=== PATIENT | male | born 1960 ===

== ENCOUNTER 2016-09-24 20:35 | Observation (INO) | payer OTHER ==
[2016-09-24 21:42] LABS: BASO # 0.02 K/mm3 (0.0-2.0); BASO % 0.2 % (0.0-3.0); EOS # 0.1 (0.0-0.7); EOS % 1.4 % (1.5-5.0); GRAN # 6.64 (1.4-6.5); GRAN % 69.1 % (50.0-68.0); HEMOGLOBIN 13.6 g/dL (14.0-18.0); LYMPH % 20.9 % (22.0-35.0); MEAN CELL VOLUME 84.5 fl (80.0-105.0); MEAN CORPUSCULAR HEMOGLOBIN 30.1 pg (25.0-35.0); MEAN CORPUSCULAR HGB CONC 35.6 g/dl (31.0-37.0); MEAN PLATELET VOLUME 10.7 fl (7.0-11.0); MONO # 0.8 (0.1-0.6); MONO % 8.4 % (1.0-6.0); PLATELET COUNT 223 10^3/uL (120.0-450.0); RBC 4.52 10^6/uL (3.5-6.1); RED CELL DISTRIBUTION WIDTH 12.9 % (11.5-14.5); WHITE BLOOD COUNT 9.6 10^3/ul (4.5-11.0)
[2016-09-24 21:52] LABS: ALB/GLOB RATIO 1.2 (1.1-1.8); ALBUMIN 4.1 g/dL (3.0-4.8); ALT/SGPT 33 U/L (7-56); AST/SGOT 22 U/L (15-59); BLOOD UREA NITROGEN 19 mg/dL (7-21); CALCIUM 9.4 mg/dL (8.4-10.5); GFR AFRICAN-AMERICAN > 60; GFR NON-AFRICAN AMERICAN > 60; LIPASE 256 U/L (23-300)
[2016-09-24 21:54] LABS: VENOUS BLOOD GAS BASE EXCESS 1.9 mmol/L (0.0-2.0); VENOUS BLOOD GAS PO2 31 mm/Hg (30-55); VENOUS BLOOD PH 7.33 (7.32-7.43)
[2016-09-24] MEDS ORDERED: Sodium Chloride 0.9% 1,000 ML IV STA ×2 (22:01→22:47)
[2016-09-24 22:08] LABS: TROPONIN I < 0.01 ng/mL
[2016-09-24 23:40] LABS: URINE BILIRUBIN NEGATIVE (NEGATIVE); URINE BLOOD NEGATIVE (NEGATIVE); URINE GLUCOSE (UA) >=1000 mg/dL (NEGATIVE); URINE LEUKOCYTE ESTERASE NEGATIVE Leu/uL (NEGATIVE); URINE NITRATE NEGATIVE (NEGATIVE); URINE PROTEIN NEGATIVE mg/dL (<30 mg/dL); URINE UROBILINOGEN 0.2 E.U./dL (<1 E.U./dL)
[2016-09-24 23:43] LABS: URINE APPEARANCE CLEAR (CLEAR); URINE COLOR STRAW (YELLOW)
[2016-09-25] MEDS ORDERED: Morphine 2 mg/ml ISec IVP STA (00:03)
--- NOTE | 2016-09-25 00:06 | ED PDOC ---
Arrival/HPI - General Historian: Patient - History of Present Illness Symptom Onset: Sudden Symptom Course: Unchanged Quality: Stabbing, Other (Sharp) Activities at Onset: Rest, Light Context: Home - General Chief Complaint: Medical Clearance Time Seen by Provider: 09/24/16 20:37 - History of Present Illness Narrative History of Present Illness (Text): 09/24/16 21:20 55 year old male non-smoker, whose past medical history includes diabetes mellitus, who presents to the Emergency department complaining of sudden sharp/ stabbing left-sided chest pain. Patient states pain is non-radiating and reports associated pain with deep inspiration. Patient denies any nausea, vomiting, diarrhea, constipation, fever, chills, urinary symptoms, dizziness, headache, weakness, or any other complaints. Patient states he did not take medication for pain. Patient reports he has history of diabetes and is non- compliant with his medication. Patient [id number] any recent travel, recent trauma , or any strenuous activity. (Angy Muniz) Past Medical History - Provider Review Nursing Documentation Reviewed: Yes - Infectious Disease Hx of Infectious Diseases: None - Endocrine/Metabolic Hx Diabetes Mellitus Type 2: Yes - Genitourinary/Gynecological Hx Genitourinary Disorders: No - Psychiatric Hx Substance Use: No Family/Social History - Physician Review Nursing Documentation Reviewed: Yes Family/Social History: Unknown Family HX Smoking Status: Current Some Days Smoker Hx Alcohol Use: No Hx Substance Use: No Allergies/Home Meds Allergies/Adverse Reactions: Allergies No Known Allergies Allergy (Verified 09/24/16 20:57) Review of Systems - Physician Review All systems were reviewed & negative as marked: Yes - Review of Systems Constitutional: Normal. absent: Fevers Eyes: Normal ENT: Normal Respiratory: absent: SOB, Cough Cardiovascular: Chest Pain Gastrointestinal: Normal. absent: Abdominal Pain, Diarrhea, Nausea, Vomiting Genitourinary Male: Normal. absent: Dysuria, Frequency, Hematuria, Urinary Output Changes Musculoskeletal: Normal. absent: Back Pain, Neck Pain Skin: Normal. absent: Rash Neurological: Normal. absent: Headache, Dizziness Endocrine: Normal Hemo/Lymphatic: Normal Psychiatric: Normal Physical Exam Vital Signs Reviewed: Yes Temperature: Afebrile Blood Pressure: Normal Pulse: Regular Respiratory Rate: Normal Appearance: Positive for: Well-Appearing, Non-Toxic, Comfortable Pain Distress: None Mental Status: Positive for: Alert and Oriented X 3 Finger Stick Blood Glucose: 355 - Systems Exam Head: Present: Atraumatic, Normocephalic Pupils: Present: PERRL Extroacular Muscles: Present: EOMI Conjunctiva: Present: Normal Mouth: Present: Moist Mucous Membranes Neck: Present: Normal Range of Motion (Supple). No: Meningeal Signs, MIDLINE TENDERNESS, Paraspinal Tenderness Respiratory/Chest: Present: Clear to Auscultation, Good Air Exchange, Tender to Palpation (Minimal left-sided anterior/lateral chest wall tenderness). No: Respiratory Distress, Accessory Muscle Use Cardiovascular: Present: Normal S1, S2, Tachycardic. No: Murmurs Abdomen: Present: Normal Bowel Sounds. No: Tenderness, Distention, Peritoneal Signs Back: Present: Normal Inspection. No: CVA Tenderness, Midline Tenderness, Paraspinal Tenderness, Pain with Leg Raise Upper Extremity: Present: Normal Inspection. No: Cyanosis, Edema Lower Extremity: Present: Normal Inspection. No: Edema Neurological: Present: GCS=15, Speech Normal Skin: Present: Warm, Dry, Normal Color. No: Rashes Psychiatric: Present: Alert, Oriented x 3, Normal Insight, Normal Concentration Medical Decision Making - Lab Interpretations I have reviewed the lab results: Yes - EKG Interpretation Interpreted by ED Physician: Yes Type: 12 lead EKG ED Course and Treatment: 09/24/16 21:20 Impression: 55 year old male non-smoker complaining of sudden sharp/stabbing left-sided chest pain. Non-compliant with diabetes medication. Plan: -- EKG -- Chest X-ray -- CBC, CMP -- VBG, cardiac enzymes, lipase, blood cultures -- D-dimer -- Urinalysis, urine cultures -- IV fluids -- Reassess and disposition Progress Notes: EKG shows sinus tachycardia at 102 bpm normal axis normal intervals no ST elevations Chest x-ray shows no infiltrate or effusion no cardiomegaly CBC within normal limits CMP shows a glucose of 451 D-dimer 0.45 Lactate 2.3 Troponin; within normal limits UA: wnl Patient was given 2 L of normal saline IV bolus: Glucose 403 8 units of insulin subcutaneous given Patient given morphine for pain Aspirin given by mouth Patient was seen and evaluated by Dr. Funes. dr. funes discussed case with dr. king; accepts observational status admission for uncontrolled DM, with cp r/o acs, with elevated lactate without sirs criteria impression; hyperglycemia, chest pain admit observational status to tele; dr. king. (Angy Muniz) - Lab Interpretations Microbiology Results: Microbiology Results 09/24/16 22:30 Blood Blood Culture - Preliminary NO GROWTH AFTER 24 HOURS 09/24/16 22:00 Blood Blood Culture - Preliminary NO GROWTH AFTER 24 HOURS Lab Results: 09/24/16 21:30 09/24/16 21:30 Lab Results 09/25/16 01:16: POC Glucose (mg/dL) 315 H 09/25/16 00:11: POC Glucose (mg/dL) 403 H* 09/24/16 23:30: Urine Color Straw, Urine Appearance Clear, Urine pH 6.0, Ur Specific [place] 1.015, Urine Protein Negative, Urine Glucose (UA) >=1000, Urine Ketones Negative, Urine Blood Negative, Urine Nitrate Negative, Urine Bilirubin Negative, Urine Urobilinogen 0.2, Ur Leukocyte Esterase Negative 09/24/16 22:15: D-Dimer, Quantitative 0.45 09/24/16 21:30: WBC 9.6, RBC 4.52, Hgb 13.6 L, Hct 38.2 L, MCV 84.5, MCH 30.1, MCHC 35.6, RDW 12.9, Plt Count 223, MPV 10.7, Gran % 69.1 H, Lymph % (Auto) 20.9 L, [place] % (Auto) 8.4 H, Eos % (Auto) 1.4 L, Baso % (Auto) 0.2, Gran # 6.64 H, Lymph # 2.0, [place] # 0.8 H, Eos # 0.1, Baso # 0.02 09/24/16 21:30: Sodium 132, Chloride 95 L, Potassium 4.1, Carbon Dioxide 26, Anion Gap 15, BUN 19, Creatinine 0.9, Est GFR ( Amer) > 60, Est GFR (Non- Af Amer) > 60, Random Glucose 451 H*, Calcium 9.4, Total Bilirubin 0.7, AST 22, ALT 33, Alkaline Phosphatase 211 H, Lactate Dehydrogenase 446, Total Creatine Kinase 99, Troponin I < 0.01, Total Protein 7.4, Albumin 4.1, Globulin 3.3, Albumin/Globulin Ratio 1.2, Lipase 256 09/24/16 21:30: pO2 31, VBG pH 7.33, VBG pCO2 55.0, VBG HCO3 29.0 H, VBG Total CO2 30.7 H, VBG O2 Sat (Calc) 65.3 H, VBG Base Excess 1.9, VBG Potassium 4.4, Sodium 134.0, Chloride 95.0 L, Glucose 462 H*, Lactate 2.3 H, FiO2 21.0, Venous Blood Potassium 4.4 09/24/16 21:15: POC Glucose (mg/dL) 355 H - RAD Interpretation Radiology Orders: 09/24/16 21:23 CHEST PORTABLE [RAD] Stat - Medication Orders Current Medication Orders: Discontinued Medications Aspirin (Aspirin) 325 mg PO STAT STA Stop: 09/25/16 00:04 Last Admin: 09/25/16 03:14 Dose: 325 mg Aspirin (Aspirin Chewable) 81 mg PO DAILY [facility] Last Admin: 09/25/16 09:15 Dose: 81 mg Atorvastatin Calcium (Lipitor) 10 mg PO DIN EMILE Atorvastatin Calcium (Lipitor) 80 mg PO DIN EMILE Famotidine (Pepcid) 20 mg PO 1000,2200 [facility] Last Admin: 09/25/16 09:15 Dose: 20 mg Heparin Sodium (Porcine) (Heparin) 5,000 units SC Q12 [facility] PRN Reason: Protocol Last Admin: 09/25/16 09:15 Dose: 5,000 units Sodium Chloride (Sodium Chloride 0.9%) 1,000 mls @ 999 mls/hr IV .Q1H1M STA Stop: 09/24/16 23:01 Last Admin: 09/24/16 22:04 Dose: 999 mls/hr Sodium Chloride (Sodium Chloride 0.9%) 1,000 mls @ 999 mls/hr IV .Q1H1M STA Stop: 09/24/16 23:47 Last Admin: 09/24/16 23:00 Dose: 999 mls/hr Sodium Chloride (Sodium Chloride 0.9%) 1,000 mls @ 100 mls/hr IV .Q10H STA Stop: 09/25/16 12:17 Last Admin: 09/25/16 03:14 Dose: 100 mls/hr Sodium Chloride (Sodium Chloride 0.9%) 1,000 mls @ 100 mls/hr IV .Q10H [facility] Last Admin: 09/25/16 05:06 Dose: Insulin Human Lispro (Humalog Med) 0 units SC ACHS EMILE PRN Reason: Protocol Last Admin: 09/25/16 12:51 Dose: 7 units Insulin Human Regular (Humulin R) 8 units SC STAT STA Stop: 09/25/16 00:13 Last Admin: 09/25/16 00:15 Dose: 8 units Morphine Sulfate (Morphine) 2 mg IVP STAT STA Stop: 09/25/16 00:04 Last Admin: 09/25/16 00:15 Dose: 2 mg Re-Assess: DARIAN Pain Assessment Document 09/25/16 01:15 JOL (Rec: 09/25/16 03:22 JOL [id number]) Pain Reassessment Is this a pain reassessment? Yes Sleep Is patient sleeping during reassessment? No Presence of Pain Presence of Pain No - Scribe Statement The provider has reviewed the documentation as recorded by the Scribe - Scribe Statement Jennifer Liang Provider Scribe Attestation: All medical record entries made by the Scribe were at my direction and personally dictated by me. I have reviewed the chart and agree that the record accurately reflects my personal performance of the history, physical exam, medical decision making, and the department course for this patient. I have also personally directed, reviewed, and agree with the discharge instructions and disposition. (Angy Muniz) Disposition/Present on Arrival - Present on Arrival Any Indicators Present on Arrival: No History of DVT/PE: No History of Uncontrolled Diabetes: No Urinary Catheter: No History of Decub. Ulcer: No History Surgical Site Infection Following: None - Disposition Have Diagnosis and Disposition been Completed?: Yes Disposition Time: 01:01 Patient Plan: Observation - Disposition Diagnosis: Chest pain, Hyperglycemia Disposition: HOSPITALIZED Condition: FAIR
[2016-09-25] MEDS ORDERED: Insulin Regular 1 UNITS/0.01 ML ML SC STA (00:12)
--- NOTE | 2016-09-25 02:00 | CP.PCM.HP ---
History of Present Illness - History of Present Illness History of Present Illness: CC: chest pressure for 2 days HPI: 55 yo male PMHx DM2 presents with intermittent chest pain for 2 days. Patient reports the pain began when he was lying down and that there was no exacerbating event. He reports pain is 8/10 and it was becoming progressively worse and on day of admission it was a 10/10 which is why he decided to come in. Patient's pain is located in left upper chest wall and does not radiate down his left arm or up his left jaw. He described it as a sharp stabbing pain that was exacerbated with taking deep breaths, coughing, and sitting upright. He reported Motrin helped relieve the pain slightly. The last time he saw his PMD was 6 months ago for routine blood work, but has not taken his diabetes medications for 4 months now as he ran out. He reports polyuria and polydipsia and weight gain. Patient also complained of noticing blood after a wiping after a BM but could not quantify for how long. He has not had a colonoscopy in the past and does not have a family history of colon ca. He denied any fever, chills , headache, dizziness, change in vision, change in hearing, palpitations, SOB, abd pain, nausea, vomiting, diarrhea, constipation, hematemesis, dysuria, leg pain/swelling, rash, easy bruising, easy bleeding. Patient also denied recent travel, sick contacts, recent illnesses. PMD: Physician in [place] PMHx: DM2, depression PSurgHx: denies Family Hx: mother with DM2, father with HTN Social Hx: smokes 1 pack/week for the past 5 years before which patient had quit smoking tobacco for 17 years; denies EtOH and drug use; lives with daughters and works at [employer]: patient unsure Allergies: NKDA ROS: Denies: fever, chills, headache, dizziness, change in vision, change in hearing, palpitations, SOB, abd pain, nausea, vomiting, diarrhea, constipation, hematemesis, dysuria, leg pain/swelling, rash, easy bruising, easy bleeding. Admits to: weight gain, chest pain, nonproductive cough, urinary frequency, blood after wiping after BM, polydipsia, polyuria, anxiety Present on Admission - Present on Admission Any Indicators Present on Admission: Yes History of DVT/PE: No History of Uncontrolled Diabetes: Yes Urinary Catheter: No Decubitus Ulcer Present: No Review of Systems - Constitutional Constitutional: As Per HPI. absent: Chills, Fever - EENT Eyes: As Per HPI. absent: Blurred Vision Ears: As Per HPI. absent: Dizziness Nose/Mouth/Throat: As Per HPI. absent: Nasal Congestion, Sore Throat - Cardiovascular Cardiovascular: As Per HPI, Chest Pain. absent: Dyspnea, Edema, Pain Radiating to Arm/Neck/Jaw, Leg Edema, Palpitations, Pedal Edema - Respiratory Respiratory: As Per HPI, Cough. absent: Dyspnea, Dyspnea on Exertion, Chest Congestion - Gastrointestinal Gastrointestinal: As Per HPI, Hematochezia. absent: Abdominal Pain, Constipation, Diarrhea, Nausea, Vomiting - Genitourinary Genitourinary: As Per HPI, Urinary Frequency. absent: Dysuria, Hematuria, Pyuria, Urinary Hesitance - Musculoskeletal Musculoskeletal: As Per HPI. absent: Back Pain, Numbness, Tingling - Integumentary Integumentary: As Per HPI. absent: Rash - Neurological Neurological: As Per HPI. absent: Dizziness, Headaches - Psychiatric Psychiatric: As Per HPI, Anxiety. absent: Depression - Endocrine Endocrine: As Per HPI, Polydipsia, Polyphagia, Polyuria. absent: Palpitations - Hematologic/Lymphatic Hematologic: As Per HPI. absent: Easy Bleeding, Easy Bruising, Lymphadenopathy Past Patient History - Infectious Disease Hx of Infectious Diseases: None - Past Social History Smoking Status: Current Some Days Smoker - ENDOCRINE/METABOLIC Hx Diabetes Mellitus Type 2: Yes - GENITOURINARY/GYNECOLOGICAL Hx Genitourinary Disorders: No - PSYCHIATRIC Hx Substance Use: No Meds Allergies/Adverse Reactions: Allergies Allergy/AdvReac Type Severity Reaction Status Date / Time No Known Allergies Allergy Verified 09/24/16 20:57 Physical Exam - Constitutional Appears: Non-toxic, No Acute Distress - Head Exam Head Exam: ATRAUMATIC, NORMAL INSPECTION, NORMOCEPHALIC - Eye Exam Eye Exam: EOMI, Normal appearance, PERRL. absent: Conjunctival injection, Scleral icterus Pupil Exam: NORMAL ACCOMODATION - ENT Exam ENT Exam: Mucous Membranes Dry - Neck Exam Neck exam: Positive for: Full Rom, Normal Inspection. Negative for: Lymphadenopathy - Respiratory Exam Respiratory Exam: Clear to Auscultation Bilateral, NORMAL BREATHING PATTERN. absent: Accessory Muscle Use, Rales, Rhonchi, Wheezes, Respiratory Distress - Cardiovascular Exam Cardiovascular Exam: Tachycardia, REGULAR RHYTHM, +S1, +S2 Additional comments: non reproducible chest pain - GI/Abdominal Exam GI & Abdominal Exam: Normal Bowel Sounds, Soft. absent: Distended, Firm, Guarding, Rigid, Tenderness - Extremities Exam Extremities exam: Positive for: normal capillary refill, normal inspection, pedal pulses present. Negative for: pedal edema - Back Exam Back exam: NORMAL INSPECTION. absent: CVA tenderness (L), CVA tenderness (R), rash noted, tenderness - Neurological Exam Neurological exam: Alert, Oriented x3 - Psychiatric Exam Psychiatric exam: Normal Affect, Normal Mood - Skin Skin Exam: Dry, Intact, Normal Color, Warm Results - Vital Signs Recent Vital Signs: Last Vital Signs Temp 98.9 F 09/25/16 01:17 Pulse 87 09/25/16 01:17 Resp 18 09/25/16 01:17 BP 144/85 09/25/16 01:17 Pulse Ox 97 09/25/16 01:17 - Labs Result Diagrams: 09/24/16 21:30 09/24/16 21:30 Labs: Laboratory Results - last 24 hr 09/24/16 09/24/16 09/24/16 21:15 21:30 21:30 WBC RBC Hgb Hct MCV MCH MCHC RDW Plt Count MPV Gran % Lymph % (Auto) [place] % (Auto) Eos % (Auto) Baso % (Auto) Gran # Lymph # [place] # Eos # Baso # D-Dimer, Quantitative pO2 31 VBG pH 7.33 VBG pCO2 55.0 VBG HCO3 29.0 H VBG Total CO2 30.7 H VBG O2 Sat (Calc) 65.3 H VBG Base Excess 1.9 VBG Potassium 4.4 Sodium 134.0 132 Chloride 95.0 L 95 L Glucose 462 H* Lactate 2.3 H FiO2 21.0 Potassium 4.1 Carbon Dioxide 26 Anion Gap 15 BUN 19 Creatinine 0.9 Est GFR ( Amer) > 60 Est GFR (Non-Af Amer) > 60 POC Glucose (mg/dL) 355 H Random Glucose 451 H* Calcium 9.4 Total Bilirubin 0.7 AST 22 ALT 33 Alkaline Phosphatase 211 H Lactate Dehydrogenase 446 Total Creatine Kinase 99 Troponin I < 0.01 Total Protein 7.4 Albumin 4.1 Globulin 3.3 Albumin/Globulin Ratio 1.2 Lipase 256 Venous Blood Potassium 4.4 Urine Color Urine Appearance Urine pH Ur Specific [place] Urine Protein Urine Glucose (UA) Urine Ketones Urine Blood Urine Nitrate Urine Bilirubin Urine Urobilinogen Ur Leukocyte Esterase 09/24/16 09/24/16 09/24/16 21:30 22:15 23:30 WBC 9.6 RBC 4.52 Hgb 13.6 L Hct 38.2 L MCV 84.5 MCH 30.1 MCHC 35.6 RDW 12.9 Plt Count 223 MPV 10.7 Gran % 69.1 H Lymph % (Auto) 20.9 L [place] % (Auto) 8.4 H Eos % (Auto) 1.4 L Baso % (Auto) 0.2 Gran # 6.64 H Lymph # 2.0 [place] # 0.8 H Eos # 0.1 Baso # 0.02 D-Dimer, Quantitative 0.45 pO2 VBG pH VBG pCO2 VBG HCO3 VBG Total CO2 VBG O2 Sat (Calc) VBG Base Excess VBG Potassium Sodium Chloride Glucose Lactate FiO2 Potassium Carbon Dioxide Anion Gap BUN Creatinine Est GFR ( Amer) Est GFR (Non-Af Amer) POC Glucose (mg/dL) Random Glucose Calcium Total Bilirubin AST ALT Alkaline Phosphatase Lactate Dehydrogenase Total Creatine Kinase Troponin I Total Protein Albumin Globulin Albumin/Globulin Ratio Lipase Venous Blood Potassium Urine Color Straw Urine Appearance Clear Urine pH 6.0 Ur Specific [place] 1.015 Urine Protein Negative Urine Glucose (UA) >=1000 Urine Ketones Negative Urine Blood Negative Urine Nitrate Negative Urine Bilirubin Negative Urine Urobilinogen 0.2 Ur Leukocyte Esterase Negative 09/25/16 00:11 WBC RBC Hgb Hct MCV MCH MCHC RDW Plt Count MPV Gran % Lymph % (Auto) [place] % (Auto) Eos % (Auto) Baso % (Auto) Gran # Lymph # [place] # Eos # Baso # D-Dimer, Quantitative pO2 VBG pH VBG pCO2 VBG HCO3 VBG Total CO2 VBG O2 Sat (Calc) VBG Base Excess VBG Potassium Sodium Chloride Glucose Lactate FiO2 Potassium Carbon Dioxide Anion Gap BUN Creatinine Est GFR ( Amer) Est GFR (Non-Af Amer) POC Glucose (mg/dL) 403 H* Random Glucose Calcium Total Bilirubin AST ALT Alkaline Phosphatase Lactate Dehydrogenase Total Creatine Kinase Troponin I Total Protein Albumin Globulin Albumin/Globulin Ratio Lipase Venous Blood Potassium Urine Color Urine Appearance Urine pH Ur Specific [place] Urine Protein Urine Glucose (UA) Urine Ketones Urine Blood Urine Nitrate Urine Bilirubin Urine Urobilinogen Ur Leukocyte Esterase Assessment & Plan - Assessment and Plan (Free Text) Assessment: 55 yo male PMHx DM2 presents with intermittent chest pain for 2 days Plan: Chest pain - r/o ACS - Troponin: < 0.01 f/u JOSE ANTONIO x 2 q6H - EKG: sinus tachycardia at 102 bpm normal axis normal intervals no ST elevations f/u EKG x 2 q6H - D-dimer: 0.45 - f/u Echo - f/u fasting lipid panel - f/u TSH and free T4 - f/u CXR official read - ASA 81mg po daily - Lipitor 10mg po qhs Uncontrolled DM2 - Patient has been uncompliant with medications - f/u HgbA1c - received 8U insulin sq in the ED - RISS medium dose - Accucheck ACHS - Heart healthy moderate consistent carb diet - NS @ 100cc/hr - Check sugars and adjust medications accordingly Elevated lactate - on admission: 2.3 - does not fit SIRS criteria - f/u blood culture and urine culture - Monitor GI ppx: Pepcid 20mg po bid DVT ppx: Heparin 5000u sc q12 Diet: Heart healthy moderate consistent carb diet Will discuss case with Dr. Ana Salgado PGY2
[2016-09-25] MEDS ORDERED: Sodium Chloride 0.9% 1,000 ML IV STA (02:18)
[2016-09-25] MEDS ORDERED: Sodium Chloride 0.9% 1,000 ML IV SCH (04:00)
[2016-09-25 04:18] VITALS: BMI 29.5
[2016-09-25 06:27] VITALS: O2SAT 94
[2016-09-25] MEDS ORDERED: Insulin Reg-LOW-Coverage SC SCH (07:30)
[2016-09-25 07:59] LABS: HDL CHOLESTEROL 35 mg/dL (29-60)
[2016-09-25 08:08] LABS: % IRON SATURATION 18 % (20-55); IRON 50 ug/dL (45-180); TOTAL IRON BINDING CAPACITY 278 ug/dL (261-462)
[2016-09-25 08:10] LABS: LDL CHOLESTEROL 105 mg/dL (0-129)
[2016-09-25 08:18] LABS: FREE T4 1.03 ng/dL (0.78-2.19)
[2016-09-25] MEDS: Insulin Lispro (humaLOG) MEDIUM Coverage SC SCH ×2 (08:24→12:51)
--- NOTE | 2016-09-25 08:54 | RAD ---
HISTORY: left sided rib pain COMPARISON: None. FINDINGS: LUNGS: No active pulmonary disease. PLEURA: No significant pleural effusion identified, no pneumothorax apparent. CARDIOVASCULAR: Normal. OSSEOUS STRUCTURES: No significant abnormalities. VISUALIZED UPPER ABDOMEN: Normal. OTHER FINDINGS: None. IMPRESSION: No active disease. No preliminary report provided by emergency department personnel.
[2016-09-25 12:26] LABS: FOLATE 8.1 ng/mL
[2016-09-25 13:29] VITALS: BP 112/70; PULSE 77; RESP 20; TEMP 97.8
--- NOTE | 2016-09-25 13:58 | CARD ---
APPROVED REPORT EKG Measurement Heart [id number] <Conclusion> Poor data quality, interpretation may be adversely affected Sinus tachycardia Otherwise normal ECG
--- NOTE | 2016-09-25 15:00 | CON ---
DATE: 09/25/2016 CARDIOLOGY CONSULTATION HISTORY OF PRESENT ILLNESS: The patient is a 55-year-old male with a history of diabetes mellitus who presents with focal chest discomfort which occurred suddenly while he was awake. The pain is increased on deep inspiration increased with movement of his upper chest. His symptoms are much improved this morning. The patient has no previous cardiac history. A stress test performed in [place] several years ago was unremarkable. He denies hypertension and denies hypercholesterolemia. He is currently noncompliant with his diabetic medications. SOCIAL HISTORY: Negative smoker. FAMILY HISTORY: No previous family history for cardiac disease. REVIEW OF SYSTEMS: A 14-point review of systems reviewed in detail. No cardiac symptomatology is noted.. PHYSICAL EXAMINATION: VITAL SIGNS: Blood pressure is 129/76, the heart rate is in the 80s. NECK: Negative JVD. LUNGS: Without rales. HEART: Reveals S1 and S2. Chest palpation could not reproduce the chest pain. EXTREMITIES: Without edema. DIAGNOSTIC DATA: EKG is within normal limits. LABORATORY DATA: First troponin is negative. Laboratory includes a glucose of 249. The cholesterol was 217. IMPRESSION 1. Chest pain which is atypical. 2. Likely musculoskeletal cause of his chest pain. 3. Diabetes mellitus. 4. Borderline hypercholesterolemia. 5. No evidence for acute coronary syndrome. Plan: Given these findings, we will obtain a second troponin, if negative, the patient can be discharged. I have given the patient a prescription for an outpatient stress test which should be done given his cardiac risk factors. I have discussed with the patient about the need for better follow up and better care of his diabetes. Jhonathan Arredondo MD
--- NOTE | 2016-09-26 04:54 | DS ---
HISTORY OF PRESENT ILLNESS: The patient was admitted overnight. The patient was cleared by Dr. Arredondo from cardiology for discharge. The patient was seen lying in bed in room 262 bed 2. Overnight nurses notes were reviewed. The patient was given prescription for stress test by Dr. Jhonathan Arredondo. PHYSICAL EXAMINATION: VITAL SIGNS: T-max 98.6, heart rate 86, telemetry shows sinus rhythm, blood pressure 129/76 and 142/84, respirations 18 and O2 sat 94% to 96%. HEENT: Head examination, normocephalic and atraumatic. HEENT examination shows pinkish conjunctivae, anicteric sclerae. No oropharyngeal lesion. NECK: No neck rigidity. CHEST: Symmetrical. LUNGS: Shows no rales, crackles or wheezing. CARDIOVASCULAR: S1 and S2, regular rhythm. ABDOMEN: Soft. Positive bowel sounds. GENITALIA: Male. RECTAL EXAMINATION: Deferred. EXTREMITIES: Shows no pitting edema, no calf tenderness or Tamica sign. NEUROLOGIC: The patient is alert, awake and oriented x3. Cranial nerve II through XII intact. Gait examination is independent. VASCULAR: Palpable pulses. DIAGNOSTICS: The patient's repeat cardiac enzymes negative. Blood sugar is down to 249 from 403. Cardiac enzymes 2 sets negative. Cholesterol 217, LDL 105 and triglycerides 378. The patient was seen and cleared for discharge by Dr. Jhonathan Arredondo. The patient was given prescription for outpatient stress test. FINAL IMPRESSION, PLAN AND DISCHARGE DIAGNOSES: 1. Left-sided chest pain. Etiology undetermined and unclear. 2. History of type 2 diabetes mellitus, noncompliant with medication. 3. Questionable hypertension, on no medication. 4. Mild normocytic anemia. 5. Granulocytosis. 6. Transient lactic acidosis. 7. Uncontrolled type 2 diabetes mellitus with hyperglycemia secondary to noncompliance with medication. 8. Hypertriglyceridemia and hypercholesterolemia with elevated LDL. 9. Questionable and possible iron deficiency with decreased iron and decreased iron saturation. 10. Glycosuria. 11. Sinus tachycardia. PLAN: At this time, the patient's entire lab data reviewed. Thyroid panel is within normal limit. B12 and folate pending. Serial cardiac enzymes negative. EKG only shows sinus tachycardia. No ST elevation depression. The patient cleared for discharge. DISCHARGE MEDICATIONS: The patient was discharged home on following medications; aspirin 81 mg p.o. daily, metformin 1000 mg twice a day and Lipitor 80 mg daily. Discharged home. Follow up with Dr. Perez within [address] Arredondo for stress test within 1 week. Discharge medications as per ambulatory orders. Copy of moderate carbohydrate, low cholesterol diet to be given to the patient. The patient was explained about the details of his medical condition. The patient was explained about the consequences of uncontrolled diabetes. The patient was advised strict compliance. The patient was advised cessation of smoking. The patient was advised close outpatient follow up. Time spent in the entire discharge process more than 45 minutes. Mika Perez MD
== END 2016-09-25 15:42 | disposition home or self-care (01) ==
LOC: ED 20:35 → ERH 09-25 02:17 → 2RNO 09-25 03:41
PROVIDERS: ADMIT Internal Medicine; ATTEND Internal Medicine
DX: R07.89 Other chest pain (principal); E11.65 Type 2 diabetes mellitus with hyperglycemia; D64.9 Anemia, unspecified; E87.2 Acidosis; E78.2 Mixed hyperlipidemia; R00.0 Tachycardia, unspecified; F32.9 Major depressive disorder, single episode, unspecified; Z87.891 Personal history of nicotine dependence; Z91.14 Patient's other noncompliance with medication regimen
CPT/HCPCS: 36415; 71010; 80053; 80061; 81003; 82550; 82607; 82728; 82746; 82803; 82948; 83036; 83540; 83550; 83615; 83690; 84439; 84443; 84484; 85025; 85378; 87040; 87086; 93005; 96360; 96372; 96374; 99285; G0378; J1644; J2270; J7040